=== PATIENT | male | born 1965 | race African-American/Black ===

== ENCOUNTER 2021-01-19 10:42 | Emergency (ER) | payer BC ==
[2021-01-19] MEDS ORDERED: IBUPROFEN 200 MG TAB PO ONE (11:45)
[2021-01-19] MEDS ORDERED: KETOROLAC 30 MG/ML INJ ONE (11:53)
--- NOTE | 2021-01-19 11:54 | RAD REPORT ---
EXAM DESCRIPTION: RAD - Shoulder Right 2 View - 01/19/2021 11:32 am CLINICAL HISTORY: Right shoulder pain FINDINGS: Anterior dislocation right humerus. No fracture noted
--- NOTE | 2021-01-19 12:52 | RAD REPORT ---
EXAM DESCRIPTION: RAD - Shoulder 1 View - 01/19/2021 12:37 pm CLINICAL HISTORY: reduction, right shoulder dislocation COMPARISON: Shoulder Right 2 View dated 01/19/2021 FINDINGS: Two AP portable images were obtained labeled post reduction 2. and post reduction 3. The first image shows the humeral head still dislocated medial and inferior to the bony glenoid. No A C joint separation. No gross fracture deformity seen. The post reduction #3 labeled image shows the humeral head superimposed on the glenoid in internal ro tation. This would indicate reduction to anatomic position. No fracture identified. IMPRESSION: Reduction of a previously detailed right humerus anterior dislocation.
--- NOTE | 2021-01-19 13:06 | ER ---
Nurse's Notes [facility] Name: Gage Ramírez Age: 55 yrs Sex: Male : 1965 Arrival Date: 01/19/2021 Time: 10:54 Bed 15 Private MD: Diagnosis: Unspecified dislocation of right shoulder joint Presentation: 01/19 10:40 Initial Sepsis Screen: Does the patient meet any 2 criteria? No. Patient's initial kg sepsis screen is negative. Does the patient have a suspected source of infection? No. Patient's initial sepsis screen is negative. Risk Assessment: Do you want to hurt yourself or someone else? Patient reports no desire to harm self or others. Onset of symptoms was January 17, 2021. 10:40 Acuity: JOSE 4 kg 10:59 Chief complaint: Patient states: Right shoulder pain and deformity. Coronavirus screen: kg Client denies travel out of the [place] in the last 14 days. Ebola Screen: Patient negative for fever greater than or equal to 101.5 degrees Fahrenheit, and additional compatible Ebola Virus Disease symptoms Patient denies exposure to infectious person. Patient denies travel to an Ebola-affected area in the 21 days before illness onset. 10:59 Method Of Arrival: [employer] Enforcement: [place] [employer] kg Historical: - Allergies: 11:10 No Known Allergies; kg - Home Meds: 11:10 lisinopril 40 mg Oral tab [Active]; Aspir-81 81 mg oral TbEC 1 tab once daily [Active]; kg - PMHx: 11:10 Hypertension; kg - Immunization history:: Adult Immunizations up to date. - Social history:: Smoking status: Patient denies any tobacco usage or history of. Screenin:13 Abuse screen: Denies threats or abuse. Denies injuries from another. Nutritional kg screening: No deficits noted. Tuberculosis screening: No symptoms or risk factors identified. Fall Risk None identified. Fall in past 12 months (25 points). No secondary diagnosis (0 pts). No IV (0 pts). Ambulatory Aid- None/Bed Rest/Nurse Assist (0 pts). Gait- Normal/Bed Rest/Wheelchair (0 pts) Mental Status- Oriented to own ability (0 pts). Total Justice Fall Scale indicates No Risk (0-24 pts). Assessment: 11:10 General: Appears in no apparent distress. Behavior is calm, cooperative, appropriate kg for age, quiet. Pain: Complains of pain in anterior aspect of right shoulder and posterior aspect of right shoulder Pain currently is 8 out of 10 on a pain scale. at worst was 10 out of 10 on a pain scale. level that patient reports is acceptable is 4 out of 10 on a pain scale. Quality of pain is described as burning, aching, Pain began 2-3 days ago. Neuro: Reports numbness to right out arm. Cardiovascular: No deficits noted. Respiratory: No deficits noted. GI: No deficits noted. : No deficits noted. EENT: No deficits noted. Derm: No deficits noted. Musculoskeletal: Reports weakness in right arm numbness in right arm pain in right arm since Since monday. Pain is 8 out of 10 on a pain scale. Injury Description: Deformity sustained to anterior aspect of right shoulder and posterior aspect of right shoulder is dislocated. Vital Signs: 10:40 BP 150 / 80; Pulse 86; Resp 20; Temp 97.0(O); Pulse Ox 99% on R/A; Weight 95.25 kg (R); kg Height 5 ft. 11 in. (180.34 cm) (R); 11:00 BP 160 / 79; Pulse 40; Resp 20; Pulse Ox 100% on R/A; kg 12:00 BP 155 / 85; Pulse 53; Resp 20; Pulse Ox 99% on R/A; kg 13:22 BP 148 / 86; Pulse 50; Resp 20; Pulse Ox 99% on R/A; kg 10:40 Body Mass Index 29.29 (95.25 kg, 180.34 cm) kg ED Course: 10:54 Patient arrived in ED. bd 10:55 Moisés Beltran NP is PHCP. pm1 10:55 Nba Juarez MD is Attending Physician. pm1 10:57 Theodora Lewis is Primary Nurse. kg 11:08 Triage completed. kg 11:13 Arm band placed on left wrist. kg 11:14 Patient has correct armband on for positive identification. Bed in low position. Call kg light in reach. Side rails up X2. two guards at bedside. 11:32 Shoulder Right (2 View) XRAY In Process Unspecified. EDMS 12:37 Shoulder (1 View) XRAY In Process Unspecified. EDMS 13:23 No provider procedures requiring assistance completed. Patient did not have IV access kg during this emergency room visit. Administered Medications: 11:29 Not Given (Physician Discretion): Ibuprofen 600 mg PO once ap3 11:39 Drug: TORadol (ketorolac) 60 mg Route: IM; Site: left deltoid; ap3 13:25 Follow up: Response: No adverse reaction; Marked relief of symptoms kg Outcome: 13:05 Discharge ordered by . pm1 13:23 Discharged to home ambulatory. kg 13:23 Condition: good 13:23 Discharge instructions given to patient, Patient and [employer] officer 13:24 Condition: improved kg 13:24 Discharge instructions given to Instructed on discharge instructions, follow up and referral plans. Demonstrated understanding of instructions, follow-up care. 13:26 Patient left the ED. kg Signatures: Dispatcher [employer] EDMS Mery Mosquera Patrick, NP VALUE ANALYST pm1 Taina Thomas RN RN ap3 Theodora Lewis kg
--- NOTE | 2021-01-19 13:07 | EDPHYS ---
Physician Documentation [facility] Name: Gage Ramírez Age: 55 yrs Sex: Male : 1965 Arrival Date: 01/19/2021 Time: 10:54 Bed 15 Private MD: ED Physician Nba Juarez HPI: 01/19 11:14 This 55 yrs old Male presents to ER via Law Enforcement with complaints of dislocated pm1 right shoulder. 11:14 The patient or guardian complains of pain, that is acute, dislocation. right shoulder. pm1 Context: The problem was sustained at a [facility], resulted from slipped and fell on his shoulder during the rain. Onset: The symptoms/episode began/occurred 2 day(s) ago. Modifying factors: the symptoms are alleviated by nothing. The symptoms are aggravated by nothing. Associated signs and symptoms: Pertinent negatives: Numbness in right arm tingling. Severity of symptoms: in the emergency department the symptoms are unchanged. Treatment prior to arrival includes: xray to diagnose dislocated right shoulder. The patient has not experienced similar symptoms in the past. The patient has been recently seen by a physician: [facility] medical team. Historical: - Allergies: 11:10 No Known Allergies; kg - Home Meds: 11:10 lisinopril 40 mg Oral tab [Active]; Aspir-81 81 mg oral TbEC 1 tab once daily [Active]; kg - PMHx: 11:10 Hypertension; kg - Immunization history:: Adult Immunizations up to date. - Social history:: Smoking status: Patient denies any tobacco usage or history of. ROS: 11:14 Constitutional: Negative for fever, chills, and weight loss, Cardiovascular: Negative pm1 for chest pain, palpitations, and edema, Respiratory: Negative for shortness of breath, cough, wheezing, and pleuritic chest pain. 11:14 Abdomen/GI: Negative for abdominal pain, nausea, vomiting, diarrhea, and constipation, Back: Negative for injury and pain, Skin: Negative for injury, rash, and discoloration, Neuro: Negative for headache, weakness, numbness, tingling, and seizure. 11:14 MS/extremity: Positive for pain, tenderness, of the anterior aspect of right shoulder. Exam: 11:14 Constitutional: This is a well developed, well nourished patient who is awake, alert, pm1 and in no acute distress. Head/Face: Normocephalic, atraumatic. 11:14 Skin: Warm, dry with normal turgor. Normal color with no rashes, no lesions, and no evidence of cellulitis. 11:14 Eyes: Exam is negative for acute changes, Extraocular movements: no acute changes, Conjunctiva: normal, Sclera: no appreciated abnormality. 11:14 ENT: Mouth: is normal, Lips: normal, Oral mucosa: normal, pink and intact, moist. 11:14 Cardiovascular: Rate: normal, Rhythm: regular, Pulses: no pulse deficits are appreciated, Edema: is not appreciated. 11:14 Respiratory: Exam negative for acute changes, respiratory distress, shortness of breath. 11:14 Abdomen/GI: Inspection: abdomen appears normal, Palpation: abdomen is soft and non-tender, in all quadrants. 11:14 Musculoskeletal/extremity: Extremities: grossly normal except: noted in the anterior aspect of right shoulder: tenderness, apparent anterior right shoulder dislocation, Circulation is intact in all extremities. Pulses: noted to be 2+ in the right radial artery, the right hand Sensation intact. 11:14 Neuro: Exam negative for acute changes, Orientation: is normal, Mentation: is normal, Motor: is normal, moves all fours, Sensation: is normal, no obvious gross deficits, Gait: is steady, at a normal pace, without difficulty. Vital Signs: 10:40 BP 150 / 80; Pulse 86; Resp 20; Temp 97.0(O); Pulse Ox 99% on R/A; Weight 95.25 kg (R); kg Height 5 ft. 11 in. (180.34 cm) (R); 11:00 BP 160 / 79; Pulse 40; Resp 20; Pulse Ox 100% on R/A; kg 12:00 BP 155 / 85; Pulse 53; Resp 20; Pulse Ox 99% on R/A; kg 13:22 BP 148 / 86; Pulse 50; Resp 20; Pulse Ox 99% on R/A; kg 10:40 Body Mass Index 29.29 (95.25 kg, 180.34 cm) kg Procedures: 11:13 Reduction: of the right shoulder, using traction, Immobilized with shoulder pm1 immobilizer. Patient tolerated well. 13:05 Reduction: of the right shoulder, using traction, Immobilized with shoulder pm1 immobilizer. Patient tolerated well. Post reduction film - reveals normal alignment. MDM: 10:55 Patient medically screened. pm1 11:20 Data reviewed: vital signs. Data interpreted: Pulse oximetry: on room air is 99 %. pm1 Interpretation: normal. 13:05 Counseling: I had a detailed discussion with the patient and/or guardian regarding: the pm1 historical points, exam findings, and any diagnostic results supporting the discharge/admit diagnosis, radiology results, the need for outpatient follow up, for definitive care, a orthopedic surgeon, to return to the emergency department if symptoms worsen or persist or if there are any questions or concerns that arise at home. 01/19 11:04 Order name: Shoulder Right (2 View) XRAY; Complete Time: 12:36 pm1 01/19 11:38 Order name: Shoulder (1 View) XRAY; Complete Time: 13:03 pm1 01/19 11:04 Order name: Shoulder Immobilizer; Complete Time: 11:42 pm1 Administered Medications: 11:29 Not Given (Physician Discretion): Ibuprofen 600 mg PO once ap3 11:39 Drug: TORadol (ketorolac) 60 mg Route: IM; Site: left deltoid; ap3 13:25 Follow up: Response: No adverse reaction; Marked relief of symptoms kg Disposition: 13:39 Co-signature as Attending Physician, Nba Juarez MD. rn Disposition: 01/19/21 13:05 Discharged to Home. Impression: Unspecified dislocation of right shoulder joint. - Condition is Stable. - Discharge Instructions: Shoulder Dislocation, How to Use a Shoulder Immobilizer. - Medication Reconciliation Form, Thank You Letter, Antibiotic Education, Prescription Opioid Use form. - Follow up: Emergency Department; When: As needed; Reason: Worsening of condition. Follow up: Private Physician; When: 2 - 3 days; Reason: Recheck today's complaints, Continuance of care, Re-evaluation by your physician. - Problem is new. - Symptoms have improved. Signatures: Dispatcher [employer] EDMS Nba Juarez MD MD rn Marinas, Patrick, ZOILA GEOPH[employer]ICAL DRAFTER pm1 Taina Thomas RN RN ap3 Theodora Lewis kg Corrections: (The following items were deleted from the chart) 13:26 13:05 01/19/2021 13:05 Discharged to Home. Impression: Unspecified dislocation of right kg shoulder joint. Condition is Stable. Forms are Medication Reconciliation Form, Thank You Letter, Antibiotic Education, Prescription Opioid Use. Follow up: Emergency Department; When: As needed; Reason: Worsening of condition. Follow up: Private Physician; When: 2 - 3 days; Reason: Recheck today's complaints, Continuance of care, Re-evaluation by your physician. Problem is new. Symptoms have improved. pm1
[2021-01-19 13:32] VITALS: O2SAT 99
[2021-01-19 13:35] VITALS: BP 148/86
== END 2021-01-19 13:26 | disposition home or self-care (01) ==
LOC: ER 10:42
PROC: 0RSJXZZ Reposition Right Shoulder Joint, External Approach (ICD-10-PCS; principal; 2021-01-19)
DX: S43.004A Unspecified dislocation of right shoulder joint, initial encounter (principal); I10 Essential (primary) hypertension; W01.0XXA Fall on same level from slipping, tripping and stumbling without subsequent striking against object, initial encounter; Y92.149 Unspecified place in prison as the place of occurrence of the external cause
CPT/HCPCS: 73020; 96372; 99283

== ENCOUNTER 2021-01-20 13:31 | Emergency (ER) | payer BC, OTHER ==
--- NOTE | 2021-01-20 14:18 | RAD REPORT ---
EXAM DESCRIPTION: RAD - Shoulder Right 2 View - 01/20/2021 2:07 pm CLINICAL HISTORY: Right shoulder pain FINDINGS: Anterior dislocation right humeral head. No fracture is seen
[2021-01-20] MEDS ORDERED: NA CHLORIDE 0.9% 1,000 ML ONE (15:35)
[2021-01-20] MEDS ORDERED: propofoL 200 MG/20 ML VIAL IV ONE ×3 (15:35→17:10)
[2021-01-20] MEDS ORDERED: ONDANSETRON 4 MG/2 ML VIAL ONE ×2 (15:52→17:10)
--- NOTE | 2021-01-20 16:31 | RAD REPORT ---
EXAM DESCRIPTION: RAD - Shoulder 1 View - 01/20/2021 3:57 pm CLINICAL HISTORY: Right shoulder pain FINDINGS: Persistence of an anterior humeral dislocation No fracture is seen
--- NOTE | 2021-01-20 17:10 | RAD REPORT ---
EXAM DESCRIPTION: RAD - Shoulder 1 View - 01/20/2021 4:54 pm CLINICAL HISTORY: Right shoulder pain FINDINGS: Persistence of an anterior right humeral dislocation
--- NOTE | 2021-01-20 17:44 | RAD REPORT ---
EXAM DESCRIPTION: RAD - Shoulder 1 View - 01/20/2021 5:16 pm CLINICAL HISTORY: Right shoulder pain FINDINGS: Frontal view of the right shoulder demonstrates that the previously described dislocation appears reduced. Hill-Sachs deformity noted
--- NOTE | 2021-01-20 18:18 | EDPHYS ---
Physician Documentation [facility] Name: Gage Ramírez Age: 55 yrs Sex: Male : 1965 Arrival Date: 01/20/2021 Time: 13:32 Bed 2 Private MD: ED Physician Gage Carter HPI: 01/20 17:55 This 55 yrs old Black Male presents to ER via [employer] with complaints of jmm Shoulder Injury. 17:55 Onset: The symptoms/episode began/occurred gradually, just prior to arrival. Modifying jmm factors: the symptoms are alleviated by nothing. The symptoms are aggravated by nothing. Associated signs and symptoms: Pertinent negatives: chest pain, shortness of breath. The patient has experienced a previous episode, yesterday. This is a 55 year old male that presents to the ED with complaints of right shoulder pain beginning after taking off his shoulder immobilizer and attempting to take a shower. . Historical: - Allergies: 13:35 No Known Allergies; hb - Immunization history:: Adult Immunizations up to date. - Social history:: Smoking status: Patient denies any tobacco usage or history of. ROS: 17:55 Constitutional: Negative for fever, chills, and weight loss, Cardiovascular: Negative jmm for chest pain, palpitations, and edema, Respiratory: Negative for shortness of breath, cough, wheezing, and pleuritic chest pain. 17:55 MS/extremity: Positive for injury or acute deformity, pain. 17:55 All other systems are negative. Exam: 17:55 Head/Face: atraumatic. Eyes: EOMI, no conjunctival erythema appreciated ENT: Moist jmm Mucus Membranes Neck: Trachea midline, Supple Chest/axilla: Normal chest wall appearance and motion. Cardiovascular: Regular rate and rhythm. No edema appreciated Respiratory: Normal respirations, no respiratory distress appreciated Abdomen/GI: Non distended, soft Back: Normal ROM Skin: General appearance color normal 17:55 Constitutional: The patient appears alert, awake, uncomfortable. 17:55 Musculoskeletal/extremity: ROM: limited passive range of motion due to pain, right shoulder held in internal flexion and adduction. 17:55 Skin: Appearance: Color: normal in color. 17:55 Neuro: Orientation: is normal, Mentation: is normal, Memory: is normal. 17:55 Psych: Behavior/mood is pleasant, cooperative. Vital Signs: 13:33 BP 164 / 96; Pulse 85; Resp 16; Temp 97.8; Pulse Ox 100% on R/A; Weight 92.99 kg; hb Height 5 ft. 11 in. (180.34 cm); Pain 10/10; 14:52 BP 144 / 73; Pulse 81; Resp 15; Pulse Ox 99% on R/A; hb 15:27 BP 171 / 96; Pulse 47; Resp 19; Temp 98.2(TE); Pulse Ox 100% on 3 lpm NC; hb 16:00 BP 176 / 86; Pulse 70; Resp 17; Pulse Ox 98% on R/A; hb 16:30 BP 172 / 96; Pulse 76; Resp 24; Pulse Ox 96% on 3 lpm NC; hb 17:00 BP 165 / 89; Pulse 53; Resp 21; Pulse Ox 99% on 3 lpm NC; hb 17:30 BP 126 / 86; Pulse 87; Resp 19; Pulse Ox 100% on 3 lpm NC; hb 13:33 Body Mass Index 28.59 (92.99 kg, 180.34 cm) hb Procedures: 18:08 Reduction: of the right shoulder, using traction, manipulation, Immobilized with [facility] shoulder immobilizer. Patient tolerated well. Post reduction film - reveals normal alignment. Moderate sedation:. MDM: 13:36 Patient medically screened. kb 18:09 Data reviewed: vital signs, nurses notes. Counseling: I had a detailed discussion with [facility] the patient and/or guardian regarding: the historical points, exam findings, and any diagnostic results supporting the discharge/admit diagnosis, radiology results, the need for outpatient follow up, to return to the emergency department if symptoms worsen or persist or if there are any questions or concerns that arise at home. ED course: Patient advised to keep on shoulder immobilizer until seen by orthopedics. Patient is otherwise given strict return precautions. patient understood and agrees with the plan ok care. . 01/20 13:36 Order name: Shoulder Right (2 View) XRAY; Complete Time: 14:22 kb 01/20 15:45 Order name: Shoulder (1 View) XRAY; Complete Time: 17:24 [facility] 01/20 16:37 Order name: Shoulder (1 View) XRAY; Complete Time: 17:24 jl7 01/20 17:12 Order name: Shoulder (1 View) XRAY; Complete Time: 17:47 jl7 01/20 14:23 Order name: Misc. Order: reduction; Complete Time: 15:48 [facility] 01/20 15:12 Order name: Saline Lock; Complete Time: 15:48 [facility] 01/20 15:12 Order name: Conscious Sedation; Complete Time: 15:48 [facility] Administered Medications: 15:35 Drug: Propofol 60 mg Route: IVP; Site: left hand; hb 15:38 Drug: Propofol 20 mg Route: IVP; Site: left hand; hb 15:41 Drug: Propofol 20 mg Route: IVP; Site: left hand; hb 16:10 Follow up: Response: No adverse reaction hb 16:28 Drug: Propofol 80 mg Route: IVP; Site: left hand; hb 16:30 Drug: Propofol 20 mg Route: IVP; Site: left hand; hb 16:32 Drug: Propofol 20 mg Route: IVP; Site: left hand; hb 17:00 Follow up: Response: No adverse reaction hb 16:54 Drug: Propofol 60 mg Route: IVP; Site: left hand; hb 16:57 Drug: Propofol 40 mg Route: IVP; Site: left hand; hb 17:08 Drug: Propofol 50 mg Route: IVP; Site: left hand; hb 17:38 Follow up: Response: No adverse reaction hb Disposition: 01/21 08:39 Co-signature as Attending Physician, Gage Carter MD I agree with the assessment and kdr plan of care. Disposition: 01/20/21 18:17 Discharged to Home. Impression: Recurrent dislocation, right shoulder. - Condition is Stable. - Discharge Instructions: Shoulder Dislocation. - Medication Reconciliation Form, Thank You Letter, Antibiotic Education, Prescription Opioid Use form. - Follow up: Private Physician; When: 2 - 3 days; Reason: Wound Recheck, If symptoms return, Continuance of care. - Notes: Please follow up with orthopedics prior to removal of shoulder immobilizer. Return to the ER if symptoms return. Signatures: Dispatcher [employer] EDMS Aiyana Mahmood, MINE WIRER-C MINE WIRER-Gage Carrasco MD MD kdr Mickail, Joel, PA PA m Mica Kim, SONNY RN hb Corrections: (The following items were deleted from the chart) 01/20 18:39 18:17 01/20/2021 18:17 Discharged to Home. Impression: Recurrent dislocation, right hb shoulder. Condition is Stable. Forms are Medication Reconciliation Form, Thank You Letter, Antibiotic Education, Prescription Opioid Use. Follow up: Private Physician; When: 2 - 3 days; Reason: Wound Recheck, If symptoms return, Continuance of care. jocelyn
--- NOTE | 2021-01-20 18:18 | ER ---
Nurse's Notes [facility] Name: Gage Ramírez Age: 55 yrs Sex: Male : 1965 Arrival Date: 01/20/2021 Time: 13:32 Bed 2 Private MD: Diagnosis: Recurrent dislocation, right shoulder Presentation: 01/20 13:33 Chief complaint: Right shoulder dislocated while attempting to shower, seen in ED for hb same s/s yesterday. Shoulder immobilizer in place. Coronavirus screen: At this time, the client does not indicate any symptoms associated with coronavirus-19. Ebola Screen: No symptoms or risks identified at this time. Initial Sepsis Screen: Does the patient meet any 2 criteria? No. Patient's initial sepsis screen is negative. Does the patient have a suspected source of infection? No. Patient's initial sepsis screen is negative. Risk Assessment: Do you want to hurt yourself or someone else? Patient reports no desire to harm self or others. Onset of symptoms was January 20, 2021. 13:33 Method Of Arrival: Law Enforcement: [place] [employer] hb 13:33 Acuity: JOSE 2 hb Historical: - Allergies: 13:35 No Known Allergies; hb - Immunization history:: Adult Immunizations up to date. - Social history:: Smoking status: Patient denies any tobacco usage or history of. Screenin:52 Abuse screen: Denies threats or abuse. Denies injuries from another. Nutritional hb screening: No deficits noted. Tuberculosis screening: No symptoms or risk factors identified. Fall Risk None identified. Assessment: 13:45 General: Appears in no apparent distress. uncomfortable, Behavior is calm, cooperative. hb Pain: Pain currently is 10 out of 10 on a pain scale. Neuro: Level of Consciousness is awake, alert, obeys commands, Oriented to person, place, time, situation. Cardiovascular: Patient's skin is warm and dry. Respiratory: Respiratory effort is even, unlabored, Respiratory pattern is regular, symmetrical. GI: No signs and/or symptoms were reported involving the gastrointestinal system. : No signs and/or symptoms were reported regarding the genitourinary system. EENT: No signs and/or symptoms were reported regarding the EENT system. Derm: Skin is pink, warm \T\ dry. Musculoskeletal: Reports right shoulder pain. 13:46 Reassessment: [employer] officers at bedside. hb 14:52 Reassessment: Patient appears in no apparent distress at this time. Patient and/or hb family updated on plan of care and expected duration. Pain level reassessed. Patient is alert, oriented x 3, equal unlabored respirations, skin warm/dry/pink. 15:30 Reassessment: HARJIT Quintana at bedside for shoulder reduction. See conscious sedation hb flowsheet. 16:11 Reassessment: Pt alert, c/o right shoulder pain 9/10, HARJIT Quintana aware, awaiting radiology hb results at this time. 16:15 Reassessment: HARJIT Quintana at bedside for reduction attempt #2, see conscious sedation hb flowsheet. 16:50 Reassessment: Dr. Carter and HARJIT Quintana at bedside for reduction attempt #3, see hb conscious sedation flowsheet. 17:32 Reassessment: Pt alert, VS WNL. Officers remain at bedside. hb Vital Signs: 13:33 BP 164 / 96; Pulse 85; Resp 16; Temp 97.8; Pulse Ox 100% on R/A; Weight 92.99 kg; hb Height 5 ft. 11 in. (180.34 cm); Pain 10/10; 14:52 BP 144 / 73; Pulse 81; Resp 15; Pulse Ox 99% on R/A; hb 15:27 BP 171 / 96; Pulse 47; Resp 19; Temp 98.2(TE); Pulse Ox 100% on 3 lpm NC; hb 16:00 BP 176 / 86; Pulse 70; Resp 17; Pulse Ox 98% on R/A; hb 16:30 BP 172 / 96; Pulse 76; Resp 24; Pulse Ox 96% on 3 lpm NC; hb 17:00 BP 165 / 89; Pulse 53; Resp 21; Pulse Ox 99% on 3 lpm NC; hb 17:30 BP 126 / 86; Pulse 87; Resp 19; Pulse Ox 100% on 3 lpm NC; hb 13:33 Body Mass Index 28.59 (92.99 kg, 180.34 cm) hb ED Course: 13:32 Patient arrived in ED. hb 13:35 Triage completed. hb 13:35 Arm band placed on. hb 13:36 Aiyana Mahmood FNP-C is [facility]. kb 13:36 Gage Carter MD is Attending Physician. kb 13:37 Mariano Gonzalez PA is PHCP. kb 14:07 Shoulder Right (2 View) XRAY In Process Unspecified. EDMS 14:25 Mica Kim, RN is Primary Nurse. hb 14:52 Patient has correct armband on for positive identification. Bed in low position. Call hb light in reach. Side rails up X 1. 15:25 Consent for conscious sedation explained by staff, explained by physician, signed by hb patient. 15:25 Inserted saline lock: 22 gauge in left hand, using aseptic technique. hb 15:53 Shoulder (1 View) XRAY Sent. hb 15:53 Assist provider with reduction of right shoulder using manipulation, Set up for hb procedure. Performed by Mariano LOMBARDI Immobilized with shoulder immobilizer Patient tolerated well. 15:55 Shoulder (1 View) XRAY In Process Unspecified. EDMS 16:30 Assist provider with reduction of right shoulder using manipulation, Set up for hb procedure. Performed by Mariano LOMBARDI Immobilized with shoulder immobilizer Patient tolerated well. 16:50 Assist provider with reduction of right shoulder using manipulation, Set up for hb procedure. Performed by Gage Carter MD Immobilized with shoulder immobilizer Patient tolerated well. 16:54 Shoulder (1 View) XRAY In Process Unspecified. EDMS 17:16 Shoulder (1 View) XRAY In Process Unspecified. EDMS 18:39 IV discontinued, intact, bleeding controlled, No redness/swelling at site. hb Administered Medications: 15:35 Drug: Propofol 60 mg Route: IVP; Site: left hand; hb 15:38 Drug: Propofol 20 mg Route: IVP; Site: left hand; hb 15:41 Drug: Propofol 20 mg Route: IVP; Site: left hand; hb 16:10 Follow up: Response: No adverse reaction hb 16:28 Drug: Propofol 80 mg Route: IVP; Site: left hand; hb 16:30 Drug: Propofol 20 mg Route: IVP; Site: left hand; hb 16:32 Drug: Propofol 20 mg Route: IVP; Site: left hand; hb 17:00 Follow up: Response: No adverse reaction hb 16:54 Drug: Propofol 60 mg Route: IVP; Site: left hand; hb 16:57 Drug: Propofol 40 mg Route: IVP; Site: left hand; hb 17:08 Drug: Propofol 50 mg Route: IVP; Site: left hand; hb 17:38 Follow up: Response: No adverse reaction hb Outcome: 18:17 Discharge ordered by MD. banks 18:39 Discharged to Law Enforcement hb 18:39 Condition: stable 18:39 Discharge instructions given to patient, police, Instructed on discharge instructions, follow up and referral plans. medication usage, Demonstrated understanding of instructions, follow-up care, medications. 18:39 Patient left the ED. hb Signatures: Dispatcher [employer] EDAiyana Lopez, AIDAN-C AIDAN-Mariano Byrd PA PA jmm Baxter, Heather, RN RN hb Corrections: (The following items were deleted from the chart) 17:35 16:15 Reassessment: HARJIT Quintana at bedside for reduction attempt #1, see conscious sedation hb flowsheet. hb
[2021-01-20 20:19] VITALS: TEMP 98.2
[2021-01-20 20:27] VITALS: BP 126/86; O2SAT 100
== END 2021-01-20 18:39 | disposition home or self-care (01) ==
LOC: ER 13:31
PROC: 0RSJXZZ Reposition Right Shoulder Joint, External Approach (ICD-10-PCS; principal; 2021-01-20)
DX: M24.411 Recurrent dislocation, right shoulder (principal)
CPT/HCPCS: 73020 ×3; 73030; 96374; 99285; 23650; J2405 ×2; J2704; J7030